=== PATIENT | male | born 1950 | race Hispanic/Latino ===

== ENCOUNTER 2019-01-29 14:13 | Outpatient (CLI) | payer MEDICARE ==
[2019-01-29 14:53] LABS: Hemoglobin 13.6 g/dL (14.0-18.0); Mean Corpuscular HGB CONC 35.3 g/dL (32.0-36.0); Mean Corpuscular Hemoglobin 33.1 pg (27.0-31.0); Mean Corpuscular Volume 93.7 fL (78.0-98.0); Mean Platelet Volume 8.2 fL (7.4-10.4); Platelet Count 253 thou/uL (130-400); RBC Distribution Width 11.2 % (11.5-14.5); White Blood Cell (WBC) Count 7.5 thou/uL (4.8-10.8)
[2019-01-29 14:54] LABS: Bacteria/HPF None Seen HPF (None Seen); Bilirubin Negative (Negative); Blood, Urine Negative (Negative); Clarity Clear (Clear); Glucose, Urine (Dipstick) Normal (Negative); Leukocyte Negative Leu/uL (Negative); Nitrite Negative (Negative); Protein, Urine (Dipstick) Negative (Neg-Trace); RBC/HPF 0-3 HPF (0-3); Squamous Epithelial 0-3 HPF (0-3); Urobilinogen Normal mg/dL (Less than 2); WBC/HPF 0-3 HPF (0-3)
[2019-01-29 14:59] LABS: PTT 29.5 SEC (22.9-36.1); Prothrombin Time 12.7 SEC (12.0-14.7)
[2019-01-29 15:13] LABS: Anion Gap 14 mmol/L (10-20); BUN (Urea Nitrogen) 23 mg/dL (8.4-25.7); Calc. Creatinine Clearance 0 mL/min (70-130); Calcium 9.6 mg/dL (7.8-10.44); Carbon Dioxide 25 mmol/L (23-31); Chloride 105 mmol/L (98-107); Estimated GFR-MDRD 32; Glucose 143 mg/dL (80-115); Potassium 3.9 mmol/L (3.5-5.1); Sodium 140 mmol/L (136-145)
--- NOTE | 2019-01-30 07:15 | EKG ---
Test Reason : Blood Pressure : / mmHG Vent. Rate : 051 BPM Atrial Rate : 051 BPM P-R Int : 118 ms QRS Dur : 124 ms QT Int : 422 ms P-R-T Axes : 011 010 008 degrees QTc Int : 388 ms Sinus bradycardia Non-specific intra-ventricular conduction delay Borderline ECG No previous ECGs available Confirmed by DR. Nickolas LAMAS ([id number]) on 01/30/2019 7:14:34 AM Referred By: SHERWIN Confirmed By:DR. Nickolas LAMAS
== END 2019-01-29 14:14 | disposition home or self-care (01) ==
LOC: LABBT 14:13
PROVIDERS: ATTEND Urology
DX: Z01.818 Encounter for other preprocedural examination (principal); Z12.5 Encounter for screening for malignant neoplasm of prostate; N40.1 Benign prostatic hyperplasia with lower urinary tract symptoms; N18.3 Chronic kidney disease, stage 3 (moderate); R35.0 Frequency of micturition
CPT/HCPCS: 80048; 81001; 85027; 85610; 85730; 87086; 93005; 93010

== ENCOUNTER 2019-02-10 05:44 | Day surgery (SDC) | payer MEDICARE ==
[2019-01-29 14:50] VITALS: BMI 22.6
[2019-02-10] MEDS ORDERED: Levofloxacin 500 mg/D5W 100 ml Premix Bag ONE (06:45)
[2019-02-10] MEDS ORDERED: Midazolam HCl 2 mg/2 ml Vial ONE (06:53)
[2019-02-10] MEDS ORDERED: Propofol 500 MG/50 ML VIAL ONE (06:53)
[2019-02-10] MEDS ORDERED: Fentanyl 100 MCG/2 ML VIAL ONE (06:53)
[2019-02-10] MEDS ORDERED: PROPOFOL 200 MG/20 ML VIAL ONE (10:24)
--- NOTE | 2019-02-10 10:42 | OP ---
DATE OF PROCEDURE: 02/10/2019 PREOPERATIVE DIAGNOSIS: A 68-year-old male with history of benign prostatic hyperplasia. POSTOPERATIVE DIAGNOSIS: A 68-year-old male with history of benign prostatic hyperplasia. PROCEDURES PERFORMED: Cystoscopy, urethral stricture dilatation, UroLift implant x6, 16-Pashto 10 mL urethral Tena catheter placement to leg bag, gravity bag. ANESTHESIA: TIVA. COMPLICATIONS: None apparent. DISPOSITION: To recovery room in stable condition. INTRAOPERATIVE FINDINGS: 1. Bulbar and proximal penile urethral stricture x2, wide caliber about 16- Pashto. 2. Bilobar hyperplasia of the prostate with high median bar, suggestion of early median lobe, however, no significant intravesical median lobe per se. 3. Bladder is grossly unremarkable. INDICATIONS FOR PROCEDURE AND HISTORY: Mr. Ma is a 68-year-old male referred to me by Nephrology for BPH symptoms. The patient with history of chronic kidney disease. The patient with remote history of possible UTI. SAMAN unremarkable. He underwent cystoscopy, volume study and presents today for UroLift implant. Risks and complications and indications for the procedure was reviewed with him in detail including, but not limited to, bleeding, pain, infection, chronic pain, possible migration of implant, possible urethral bladder stricture, stone, stricture formation, chronic pain, injury to adjacent organs. All questions were answered to his satisfaction and desired to proceed. DESCRIPTION OF PROCEDURE: After an informed consent was signed, the patient was taken to the operating room, placed in a dorsal lithotomy position with the genital area prepped and draped in the usual surgical sterile fashion. Although, it was not appreciated on flexible cystoscopy. On a rigid cystoscope, there was evidence of bulbar and proximal penile urethral stricture x2. These are wide caliber annular about 16-Pashto caliber. I was able to bypass it with the rigid cystoscope without difficulty. Bilobar hyperplasia with suggestion of a very early median lobe with high median bar was appreciated. The bladder was entered and the UOs were identified about 3 mm proximal to the bladder neck. Bladder was grossly unremarkable. With the UOs kept out of harm's way, we then re-staged the prostatic urethra with the UroLift implant obturator. With the visual obturator, we passed a UroLift implant device and subsequently passed our implant. A total of 6 implants were performed, three on each side. Care was taken to stay least a centimeter and a half proximal to the bladder neck. At the end of the procedure, he had a nice anterior channel. We did have a bone strike on the right side of the patient of mid implant, however, this was able to be salvaged with appropriate implant placement. There was evidence of a small prostatic urethral defect with the lateral implant at the mucosal level, however, no significant oozing was appreciated. Anterior channel was nicely created. I did dilate his urethral stricture with the cystoscope passively. Resolution of the annular stricture was noted. As there was concomitant urethral stricture dilatation, decision was made to leave the catheter in for about a week. A 16-Pashto 10 mL urethral Tena catheter was able to be placed without significant issues and 10 mL insufflated and attached to leg bag. He tolerated the procedure well and transported to the recovery room in stable condition. We did survey the bladder with a 30-degree and a 70-degree lens, and there was no gross evidence of implant at the level of the bladder neck mucosa or within the bladder mucosa itself. He will come to my office next week for catheter removal. He is discharged with ciprofloxacin for course of 7 days, Azo p.r.n., short course of tramadol 50 mg #20 one p.o. q.6 hours p.r.n. He is to continue his BPH medications for now. Job ID: [id number] [facility]
== END 2019-02-10 10:13 | disposition home or self-care (01) ==
LOC: SDC 05:44
PROVIDERS: ATTEND Urology
PROC: 0T7D8DZ Dilation of Urethra with Intraluminal Device, Via Natural or Artificial Opening Endoscopic (ICD-10-PCS; principal; 2019-02-10)
DX: N40.1 Benign prostatic hyperplasia with lower urinary tract symptoms (principal); R35.0 Frequency of micturition; N35.912 Unspecified bulbous urethral stricture, male; I12.9 Hypertensive chronic kidney disease with stage 1 through stage 4 chronic kidney disease, or unspecified chronic kidney disease; N18.3 Chronic kidney disease, stage 3 (moderate); D63.1 Anemia in chronic kidney disease; E78.5 Hyperlipidemia, unspecified; Z79.899 Other long term (current) drug therapy
CPT/HCPCS: C1889; C9740; J1956; J2250; J2704; J3010

== ENCOUNTER 2020-02-18 13:04 | Outpatient (CLI) | payer MEDICARE ==
--- NOTE | 2020-02-18 13:37 | ULT ---
Bilateral renal ultrasound CLINICAL INDICATION: Chronic kidney disease stage III. COMPARISON: 01/30/2018. FINDINGS: Right kidney: There is no evidence of a renal mass, renal calculus, or hydronephrosis seen. The right kidney measures 9.9 cm x 4.7 cm. Left kidney: There is no evidence of a renal mass, renal calculus, or hydronephrosis. The left kidney measures 10.5 cm x 5.4 cm. Urinary bladder: Within normal limits for degree of distention. Urinary bladder volume is 105.9 mL The prostate gland has a lobulated appearance and results in mass effect on the posterior inferior as pect of the urinary bladder. This was present on prior exam as well. No interval change from prior study. IMPRESSION: 1. Normal sonographic appearance of the bilateral kidneys without evidence of hydronephrosis. 2. Prominence of the prostate gland with lobulated contour. Similar finding was seen on prior study.
== END 2020-02-18 13:05 | disposition home or self-care (01) ==
LOC: BICULT 13:04
PROVIDERS: ATTEND Internal Medicine Nephrology
DX: N18.30 Chronic kidney disease, stage 3 unspecified (principal); N42.89 Other specified disorders of prostate; Q55.4 Other congenital malformations of vas deferens, epididymis, seminal vesicles and prostate
CPT/HCPCS: 76770